=== PATIENT | male | born 1995 | race Caucasian/White ===

== ENCOUNTER 2018-09-20 17:17 | Emergency (ER) | payer BC ==
--- NOTE | 2018-09-20 18:55 | EDM.PDOC ---
ED HPI GENERAL MEDICAL PROBLEM - General Chief Complaint: Chest Pain Stated Complaint: CHEST PAIN X 3 WEEKS Time Seen by Provider: 09/20/18 17:47 Source of Information: Reports: Patient History Limitations: Reports: No Limitations - History of Present Illness INITIAL COMMENTS - FREE TEXT/NARRATIVE: The patient presents with chest pain. This has been an ongoing problem for about 2 weeks. He describes the pain as pressure and it comes and goes. It does not matter what he is doing when it comes on. He can be sleeping, working , walking or eating. It does not matter. He has no shortness of breath. He says it feels like his heart is pounding and racing at times. He has no fever, chills, cough, congestion, runny nose, abdominal pain, nausea or vomiting. He has no shortness of breath. He has no history of anything like this before. He has no history of [place], diabetes, hypertension, or hypercholesterolemia. He does smoke a couple cigarettes per week. He says sometimes putting pressure on his chest helps. Onset: Gradual Duration: Week(s): (2) Location: Reports: Chest Quality: Reports: Pressure Severity: Mild Improves with: Reports: None Worsens with: Reports: None Associated Symptoms: Reports: Chest Pain. Denies: Cough, Fever/Chills, Headaches, Nausea/Vomiting, Shortness of Breath Middle Chest Pain Score (Numeric/FACES): 2 - Related Data Allergies Allergy/AdvReac Type Severity Reaction Status Date / Time No Known Allergies Allergy Verified 09/20/18 17:51 Home Meds: Home Meds . [No Known Home Meds] 09/20/18 [History] Past Medical History - Past Health History Medical/Surgical History: Denies Medical/Surgical History Social & Family History - Tobacco Use Smoking Status *Q: Current Every Day Smoker Years of Tobacco use: 1 Packs/Tins Daily: 0.2 - Caffeine Use Caffeine Use: Reports: None - Recreational Drug Use Recreational Drug Use: No ED ROS GENERAL - Review of Systems Review Of Systems: See Below Constitutional: Reports: No Symptoms HEENT: Reports: No Symptoms Respiratory: Reports: No Symptoms Cardiovascular: Reports: Chest Pain Endocrine: Reports: No Symptoms GI/Abdominal: Reports: No Symptoms : Reports: No Symptoms Musculoskeletal: Reports: No Symptoms Skin: Reports: No Symptoms ED EXAM, GENERAL - Physical Exam Exam: See Below Exam Limited By: No Limitations General Appearance: Alert, No Apparent Distress Ears: Normal External Exam Nose: Normal Inspection Head: Atraumatic, Normocephalic Neck: Normal Inspection Respiratory/Chest: No Respiratory Distress, Lungs Clear, Normal Breath Sounds Cardiovascular: Regular Rate, Rhythm, No Edema, No Murmur GI/Abdominal: Soft, Non-Tender, No Organomegaly, No Mass Back Exam: Normal Inspection Extremities: Normal Inspection Neurological: Alert, Oriented, No Motor/Sensory Deficits EKG INTERPRETATION EKG Date: 09/20/18 Time: 16:59 Rhythm: NSR Rate (Beats/Min): 85 Moore: Normal P-Wave: Present QRS: Normal ST-T: Elevated (Normal early repol) QT: Normal Course - Vital Signs Last Recorded V/S: Last Vital Signs Temp 98.4 F 09/20/18 17:46 Pulse 80 09/20/18 17:46 Resp 13 09/20/18 17:46 BP 143/97 H 09/20/18 17:46 Pulse Ox 97 09/20/18 17:46 - Orders/Labs/Meds Orders: Active Orders 24 hr Category Date Time Status Cardiac Monitoring [RC] . DIRECTED Care 09/20/18 17:51 Active EKG Documentation Completion [RC] STAT Care 09/20/18 17:51 Active Chest 2V [CR] Stat Exams 09/20/18 17:51 Ordered Labs: Laboratory Tests 09/20/18 09/20/18 09/20/18 Range/Units 18:15 18:15 18:15 WBC 6.74 (4.23-9.07) K/mm3 RBC 4.96 (4.63-6.08) M/mm3 Hgb 15.2 (13.7-17.5) gm/L Hct 43.5 (40.1-51.0) % MCV 87.7 (79.0-92.2) fl MCH 30.6 (25.7-32.2) pg MCHC 34.9 (32.2-35.5) g/dl RDW Std Deviation 40.9 (35.1-43.9) fL Plt Count 269 (163-337) K/mm3 MPV 10.3 (9.4-12.3) fl Neut % (Auto) 46.9 (34.0-67.9) % Lymph % (Auto) 39.8 (21.8-53.1) % Porter % (Auto) 9.8 (5.3-12.2) % Eos % (Auto) 3.0 (0.8-7.0) Baso % (Auto) 0.4 (0.1-1.2) % Neut # (Auto) 3.16 (1.78-5.38) K/mm3 Lymph # (Auto) 2.68 (1.32-3.57) K/mm3 Porter # (Auto) 0.66 (0.30-0.82) K/mm3 Eos # (Auto) 0.20 (0.04-0.54) K/mm3 Baso # (Auto) 0.03 (0.01-0.08) K/mm3 D-Dimer, Quantitative 0.38 (0.19-0.50) mg/L Sodium 139 (136-145) mEq/L Potassium 3.7 (3.5-5.1) mEq/L Chloride 103 (98-107) mEq/L Carbon Dioxide 26 (21-32) mEq/L Anion Gap 13.7 (5-15) BUN 13 (7-18) mg/dL Creatinine 1.0 (0.7-1.3) mg/dL Est Cr Clr Drug Dosing 97.02 mL/min Estimated GFR (MDRD) > 60 (>60) mL/min BUN/Creatinine Ratio 13.0 L (14-18) Glucose 95 (74-106) mg/dL Calcium 9.0 (8.5-10.1) mg/dL Total Bilirubin 0.4 (0.2-1.0) mg/dL AST 27 (15-37) U/L ALT 39 (16-63) U/L Alkaline Phosphatase 106 (46-116) U/L Troponin I < 0.017 (0.00-0.056) ng/mL Total Protein 7.8 (6.4-8.2) g/dl Albumin 4.3 (3.4-5.0) g/dl Globulin 3.5 gm/dL Albumin/Globulin Ratio 1.2 (1-2) TSH 3rd Generation 1.591 (0.358-3.74) uIU/mL - Re-Assessments/Exams Free Text/Narrative Re-Assessment/Exam: 09/20/18 19:02 I ordered an EKG, CXR, and labs. His EKG shows a NSR with no acute changes. His CXR looks good. His CBC and CMP looks good. His D-dimer is negative. His troponin is negative. His TSH is normal. This does not appear to be his heart or lungs. I do not feel this is anxiety. I feel this is atypical chest pain. I called his [facility] Medical nurse Lilly Moreno RN to update her. Departure - Departure Time of Disposition: 19:10 Disposition: Home, Self-Care 01 Condition: Good Clinical Impression: Atypical chest pain Referrals: PCP,Lola [Primary Care Provider] - Douglas Browne PA [Physician Super[employer]] - 1 Week Forms: ED Department Discharge Additional Instructions: Take tylenol or motrin for any pain. Try to keep track of when these episodes happen and what you are doing. Follow up with Douglas Browne in 1 week. Please return if you are worse. - My Orders Last 24 Hours: My Active Orders 09/20/18 17:51 Cardiac Monitoring [RC] . DIRECTED EKG Documentation Completion [RC] STAT Chest 2V [CR] Stat - Assessment/Plan Last 24 Hours: My Active Orders 09/20/18 17:51 Cardiac Monitoring [RC] . DIRECTED EKG Documentation Completion [RC] STAT Chest 2V [CR] Stat
--- NOTE | 2018-09-21 06:55 | CR ---
Chest: Two views of the chest were obtained. Comparison: No prior chest x-ray. Very slight scoliosis is present. Heart size and mediastinum are normal. Lungs are clear with no acute parenchymal change. Impression: 1. Incidental findings. Nothing acute is seen. Diagnostic code #2
== END 2018-09-20 19:36 | disposition home or self-care (01) ==
LOC: JD.ED 17:17
DX: R07.89 Other chest pain (principal); F17.210 Nicotine dependence, cigarettes, uncomplicated
CPT/HCPCS: 36415; 71046; 71046-26; 80053; 84443; 84484; 85025; 85379; 93005; 93010; 99284; 99285-25